=== PATIENT | male | born 1965 | race Caucasian/White ===

== ENCOUNTER 2022-05-01 09:16 | Emergency (ER) | payer OTHER ==
[~2022-05-01] VITALS: Ht 177.8 cm; Wt 76.7 kg
[2022-05-01] MEDS ORDERED: OMEPRAZOLE20 MG PO (13:41)
[2022-05-01] MEDS ORDERED: ONDANSETRON ODT8 MG PO (13:41)
== END 2022-05-01 14:59 | disposition home or self-care (01) ==
LOC: ED 09:16
DX: K29.00 Acute gastritis without bleeding (principal); E11.9 Type 2 diabetes mellitus without complications; I10 Essential (primary) hypertension
CPT/HCPCS: 36415; 80053; 83690; 85025; 96374; 96375; 99284-25; A9270; C9113; J2405; J7030